=== PATIENT | female | born 1990 | race Caucasian/White ===

== ENCOUNTER → 2016-12-15 | Outpatient (CLI) | payer BC | LOC: LAB 13:56 | DX: E87.6 Hypokalemia (principal); E83.42 Hypomagnesemia | CPT/HCPCS: 36415; 80051; 83735 ==

== ENCOUNTER → 2020-10-18 | Outpatient (CLI) | payer BC ==
[~2020-10-18] MED LIST: ADDERALL XR 3030 MG PO; EFFER-K 25 MEQ25 MEQ PO; KEPPRA500 MG PO; LITHIUM CARBON300 M4 PO; SAPHRIS10 MG SL; TIROSINT25 MCG PO; VYVANSE50 MG PO; ZOLOFT100 MG PO
[2020-10-18 22:32] LABS: HEMOGLOBIN 11.5 gm/dl (12.3-15.3); RED BLOOD COUNT 3.81 M/UL (4.00-5.10); WHITE BLOOD COUNT 6.6 K/UL (4.5-11.0)
[2020-10-18 23:01] LABS: BUN/CREATININE RATIO 25 (0-10)
== END ==
LOC: LAB 22:14
PROVIDERS: Psychiatry & Neurology Psychiatry
DX: Z51.81 Encounter for therapeutic drug level monitoring (principal); E03.9 Hypothyroidism, unspecified; E83.42 Hypomagnesemia; Z79.899 Other long term (current) drug therapy
CPT/HCPCS: 36415; 80053; 80178; 83735; 84439; 85025

== ENCOUNTER → 2021-02-02 | Outpatient (CLI) | payer BC ==
[2021-02-02 17:03] LABS: BUN/CREATININE RATIO 22 (0-10)
[2021-02-04 08:20] LABS: VITAMIN D, 25-HYDROXY 10.6 ng/mL (30.0-100.0)
[2021-02-05 23:07] LABS: TANDEM-R OSTASE 16.5 ug/L (.)
== END ==
LOC: LAB 14:59
PROVIDERS: Internal Medicine Nephrology
DX: Z51.81 Encounter for therapeutic drug level monitoring (principal); E87.6 Hypokalemia; E83.42 Hypomagnesemia; F41.9 Anxiety disorder, unspecified
CPT/HCPCS: 36415; 80051; 80069; 80178; 82523; 83735; 83937; 84080

== ENCOUNTER → 2021-06-11 | Outpatient (CLI) | payer BC ==
[2021-06-11 07:14] LABS: HEMOGLOBIN 10.4 gm/dl (12.3-15.3); RED BLOOD COUNT 3.89 M/UL (4.00-5.10); WHITE BLOOD COUNT 9.7 K/UL (4.5-11.0)
[2021-06-11 07:44] LABS: BUN/CREATININE RATIO 17 (0-10)
== END ==
LOC: LAB 06:50
PROVIDERS: Psychiatry & Neurology Psychiatry
DX: Z51.81 Encounter for therapeutic drug level monitoring (principal); E03.9 Hypothyroidism, unspecified; E83.42 Hypomagnesemia; D63.8 Anemia in other chronic diseases classified elsewhere; Z79.899 Other long term (current) drug therapy
CPT/HCPCS: 36415; 80053; 80178; 83735; 84439; 84443; 85025

== ENCOUNTER → 2021-08-17 | Outpatient (CLI) | payer BC | LOC: LAB 22:40 | DX: E83.42 Hypomagnesemia (principal); E87.6 Hypokalemia | CPT/HCPCS: 80051; 83735 ==

== ENCOUNTER → 2021-10-07 | Outpatient (CLI) | payer BC ==
[2021-10-09 08:14] LABS: VITAMIN D, 25-HYDROXY 32.8 ng/mL (30.0-100.0)
== END ==
LOC: LAB 19:17
PROVIDERS: Physician Assistant Medical
DX: M81.0 Age-related osteoporosis without current pathological fracture (principal)
CPT/HCPCS: 36415; 80069; 82523; 82570; 84080

== ENCOUNTER → 2021-12-14 | Outpatient (CLI) | payer BC ==
[2021-12-14 21:37] LABS: BUN/CREATININE RATIO 18 (0-10)
== END ==
LOC: LAB 20:13
PROVIDERS: Physician Assistant Medical
DX: M81.0 Age-related osteoporosis without current pathological fracture (principal)
CPT/HCPCS: 80069

== ENCOUNTER → 2021-12-26 | Outpatient (CLI) | payer BC ==
[2021-12-26 09:28] LABS: HEMOGLOBIN 9.7 gm/dl (12.3-15.3); RED BLOOD COUNT 3.38 M/UL (4.00-5.10); WHITE BLOOD COUNT 4.5 K/UL (4.5-11.0)
[2021-12-26 09:44] LABS: BUN/CREATININE RATIO 17 (0-10)
== END ==
LOC: LAB 09:03
PROVIDERS: Physician Assistant Medical
DX: M81.0 Age-related osteoporosis without current pathological fracture (principal)
CPT/HCPCS: 36415; 80048; 85027